=== PATIENT | female | born 1955 | race African-American/Black ===

== ENCOUNTER 2021-01-05 14:55 | Outpatient (REF) | payer MEDICARE, MEDICAID, SELFPAY ==
--- NOTE | ~2021-01-05 | XR_ITS ---
EXAMINATION: XR LUMBOSACRAL SPINE WITH OBLIQUES CLINICAL INFORMATION: Lumbago with right sciatica. COMPARISON: None TECHNIQUE: AP, both oblique, and lateral views of the lumbar spine. Lateral view of the lumbosacral junction. FINDINGS: There are 5 nonrib-bearing lumbar vertebra. No acute fracture, spondylolisthesis, or spondylolysis is identified. There is multilevel mild marginal spurring present. There is mild narrowing of the L5-S1 disc space. No significant facet arthropathy is appreciated. There is mild scoliosis convex right but which may be positional in nature. No evidence of widening or fusion of the sacroiliac joints. XR/XR lumbar spine 4V min IMPRESSION: Mild multilevel spondylosis without evidence of acute fracture, spondylolisthesis, or spondylolysis.
== END 2021-01-05 14:56 | disposition home or self-care (01) ==
LOC: HO.XRAY 14:55
PROVIDERS: PCP Internal Medicine; Visit Provider Internal Medicine
DX: M54.41 Lumbago with sciatica, right side (principal)
CPT/HCPCS: 72110